=== PATIENT | male | born 1960 | race Two or more races ===

== ENCOUNTER 2018-04-15 15:57 | Emergency (ER) | payer SELFPAY ==
--- NOTE | 2018-04-15 16:40 | EDM.PDOC ---
ED HPI GENERAL MEDICAL PROBLEM - General Chief Complaint: Drug or Alcohol Abuse Stated Complaint: [facility] Time Seen by Provider: 04/15/18 16:10 Source of Information: Reports: EMS History Limitations: Reports: Altered Mental Status - History of Present Illness INITIAL COMMENTS - FREE TEXT/NARRATIVE: Per EMS, the patient was drinking at [employer]. He became intoxicated. The staff called a cab for him, but he became unresponsive. EMS was called. Here in the ED, the patient was pulling at his IV just prior to my entering his room, however, as soon as I entered, he closed his eyes and would not open them upon request. He did not answer any questions or follow any commands. There is no report of a fall or other trauma. There is no report of the patient using any recreational drugs in addition to alcohol, however, it cannot be ruled out at this time. - Related Data Allergies Allergy/AdvReac Type Severity Reaction Status Date / Time Penicillins Allergy Hives Verified 04/15/18 16:08 Home Meds: Home Meds . [No Known Home Meds] 10/13/14 [History] Past Medical History - Past Health History Medical/Surgical History: Denies Medical/Surgical History ED ROS GENERAL - Review of Systems Review Of Systems: Unable To Obtain - Physical Exam Exam: See Below Exam Limited By: Uncooperative General Appearance: WD/WN, No Apparent Distress, Lethargic Eye Exam: Bilateral Eye: Normal Inspection Ears: Normal External Exam, Hearing Grossly Normal Nose: Normal Inspection, No Blood Throat/Mouth: Normal Inspection, Normal Lips, No Airway Compromise Head Exam: Atraumatic, Normocephalic Neck: Normal Inspection Respiratory/Chest: No Respiratory Distress, Lungs Clear, Normal Breath Sounds, No Accessory Muscle Use Cardiovascular: Normal Peripheral Pulses, Regular Rate, Rhythm, No Edema, No Gallop, No JVD, No Murmur, No Rub GI/Abdominal: Normal Bowel Sounds, Soft, Non-Tender, No Organomegaly, No Distention, No Abnormal Bruit, No Mass (Male) Exam: Deferred Rectal (Males) Exam: Deferred Neuro Exam (Abbreviated): Unresponsive Back Exam: Normal Inspection, Full Range of Motion, NT Extremities: Normal Inspection, No Pedal Edema, Normal Capillary Refill Psychiatric: Other (Unable to assess) Skin Exam: Warm, Dry, Intact, Normal Color, No Rash EKG INTERPRETATION EKG Date: 04/15/18 Time: 16:38 Rhythm: NSR Rate (Beats/Min): 74 [place]: Normal P-Wave: Present QRS: Other (Early transition) ST-T: Elevated (Concave, anterolateral leads) QT: Normal Comparison: No Change (10/13/2014) Course - Vital Signs Last Recorded V/S: Last Vital Signs Temp 36.3 C 04/15/18 16:05 Pulse 99 04/15/18 16:05 Resp 12 04/15/18 16:05 BP 99/62 04/15/18 16:05 Pulse Ox 90 L 04/15/18 16:05 - Orders/Labs/Meds Orders: Active Orders 24 hr Category Date Time Status Accu Check [Blood Glucose Check, Bedside] [] ONETIME Care 04/15/18 16:31 Active EKG Documentation Completion [] STAT Care 04/15/18 16:30 Active DRUG SCREEN, URINE [URCHEM] Stat Lab 04/15/18 16:48 Ordered Sodium Chloride 0.9% [Normal Saline] 1,000 ml Med 04/15/18 16:45 Active IV ASDIRECTED Medication Orders Sodium Chloride (Normal Saline) 1,000 mls @ 150 mls/hr IV ASDIRECTED [facility] Last Admin: 04/15/18 16:38 Dose: 150 mls/hr Labs: Laboratory Tests 04/15/18 04/15/18 04/15/18 Range/Units 16:10 16:10 16:10 WBC 12.46 H (4.23-9.07) K/mm3 RBC 3.79 L (4.63-6.08) M/mm3 Hgb 13.0 L (13.7-17.5) gm/L Hct 37.5 L (40.1-51.0) % MCV 98.9 H (79.0-92.2) fl MCH 34.3 H (25.7-32.2) pg MCHC 34.7 (32.2-35.5) g/dl RDW Std Deviation 50.3 H (35.1-43.9) fL Plt Count 531 H (163-337) K/mm3 MPV 8.8 L (9.4-12.3) fl Neutrophils % (Manual) 43 (40-60) % Band Neutrophils % 0 (0-10) % Lymphocytes % (Manual) 53 H (20-40) % Atypical Lymphs % 0 % Monocytes % (Manual) 1 L (2-10) % Eosinophils % (Manual) 3 (0.8-7.0) % Basophils % (Manual) 0 L (0.2-1.2) Platelet Estimate Increased Plt Morphology Comment See note RBC Morph Comment Normal Sodium 136 (136-145) mEq/L Potassium 4.8 (3.5-5.1) mEq/L Chloride 103 (98-107) mEq/L Carbon Dioxide 23 (21-32) mEq/L Anion Gap 14.8 (5-15) BUN 10 (7-18) mg/dL Creatinine 0.8 (0.7-1.3) mg/dL Est Cr Clr Drug Dosing 100.40 mL/min Estimated GFR (MDRD) > 60 (>60) mL/min BUN/Creatinine Ratio 12.5 L (14-18) Glucose 95 (74-106) mg/dL POC Glucose (70-105) mg/dL Calcium 8.1 L (8.5-10.1) mg/dL Total Bilirubin 0.3 (0.2-1.0) mg/dL AST 37 (15-37) U/L ALT 19 (16-63) U/L Alkaline Phosphatase 60 (46-116) U/L Troponin I < 0.017 (0.00-0.056) ng/mL Total Protein 7.3 (6.4-8.2) g/dl Albumin 3.2 L (3.4-5.0) g/dl Globulin 4.1 gm/dL Albumin/Globulin Ratio 0.8 L (1-2) TSH 3rd Generation 4.339 H (0.358-3.74) uIU/mL Salicylates (2.8-20) mg/dL Urine Opiates Screen (NEGATIVE) Ur Buprenorphine Scrn (NEGATIVE) Ur Oxycodone Screen (NEGATIVE) Urine Methadone Screen (NEGATIVE) Ur Propoxyphene Screen (NEGATIVE) Acetaminophen 0 L (10-30) ug/mL Ur Barbiturates Screen (NEGATIVE) Ur Tricyclics Screen (NEGATIVE) Ur Phencyclidine Scrn (NEGATIVE) Ur Amphetamine Screen (NEGATIVE) U Methamphetamines Scrn (NEGATIVE) U Benzodiazepines Scrn (NEGATIVE) U Cocaine Metab Screen (NEGATIVE) U Marijuana (THC) Screen (NEGATIVE) Ethyl Alcohol 0.33 (0.00) gm% 04/15/18 04/15/18 04/15/18 Range/Units 16:10 16:42 16:48 WBC (4.23-9.07) K/mm3 RBC (4.63-6.08) M/mm3 Hgb (13.7-17.5) gm/L Hct (40.1-51.0) % MCV (79.0-92.2) fl MCH (25.7-32.2) pg MCHC (32.2-35.5) g/dl RDW Std Deviation (35.1-43.9) fL Plt Count (163-337) K/mm3 MPV (9.4-12.3) fl Neutrophils % (Manual) (40-60) % Band Neutrophils % (0-10) % Lymphocytes % (Manual) (20-40) % Atypical Lymphs % % Monocytes % (Manual) (2-10) % Eosinophils % (Manual) (0.8-7.0) % Basophils % (Manual) (0.2-1.2) Platelet Estimate Plt Morphology Comment RBC Morph Comment Sodium (136-145) mEq/L Potassium (3.5-5.1) mEq/L Chloride (98-107) mEq/L Carbon Dioxide (21-32) mEq/L Anion Gap (5-15) BUN (7-18) mg/dL Creatinine (0.7-1.3) mg/dL Est Cr Clr Drug Dosing mL/min Estimated GFR (MDRD) (>60) mL/min BUN/Creatinine Ratio (14-18) Glucose (74-106) mg/dL POC Glucose 84 (70-105) mg/dL Calcium (8.5-10.1) mg/dL Total Bilirubin (0.2-1.0) mg/dL AST (15-37) U/L ALT (16-63) U/L Alkaline Phosphatase (46-116) U/L Troponin I (0.00-0.056) ng/mL Total Protein (6.4-8.2) g/dl Albumin (3.4-5.0) g/dl Globulin gm/dL Albumin/Globulin Ratio (1-2) TSH 3rd Generation (0.358-3.74) uIU/mL Salicylates 3.2 (2.8-20) mg/dL Urine Opiates Screen Negative (NEGATIVE) Ur Buprenorphine Scrn Negative (NEGATIVE) Ur Oxycodone Screen Negative (NEGATIVE) Urine Methadone Screen Negative (NEGATIVE) Ur Propoxyphene Screen Negative (NEGATIVE) Acetaminophen (10-30) ug/mL Ur Barbiturates Screen Negative (NEGATIVE) Ur Tricyclics Screen Negative (NEGATIVE) Ur Phencyclidine Scrn Negative (NEGATIVE) Ur Amphetamine Screen Negative (NEGATIVE) U Methamphetamines Scrn Negative (NEGATIVE) U Benzodiazepines Scrn Negative (NEGATIVE) U Cocaine Metab Screen Negative (NEGATIVE) U Marijuana (THC) Screen Negative (NEGATIVE) Ethyl Alcohol (0.00) gm% Meds: Medications Generic Name Dose Route Start Last Admin Trade Name Freq PRN Reason Stop Dose Admin Sodium Chloride 1,000 mls @ 150 mls/hr 04/15/18 16:45 04/15/18 16:38 Normal Saline IV 150 mls/hr ASDIRECTED [facility] Administration - Re-Assessments/Exams Free Text/Narrative Re-Assessment/Exam: 04/15/18 16:37 After I left the patient's room, Froilan ARELLANO approached the patient to get a urine sample. He was instructed to acquire the urine by quick catheter if the patient would not provide one willingly. At that point, the patient woke up. 04/15/18 18:08 Test results reviewed with the patient. The patient's WBC count is elevated at 12.46, but with 0% bandemia. His hemoglobin/hematocrit and platelets are mildly elevated, as well. His TSH is elevated at 4.339, suggestive of hypothyroidism. His alcohol level is significantly elevated at 0.33. The patient is adamant that he wants the IV removed, and that he be allowed to go home. We requested that he get a ride home. He states that he has no one to call for a ride, and that he will simply walk. We requested that he stay for dinner first, before being discharged home. He stated that he does not want to eat our food. He is insistent that we remove the IV and let him go home. As there is no law against public intoxication, I have no choice but to discharge the patient. Departure - Departure Time of Disposition: 18:12 Disposition: Home, Self-Care 01 Condition: Fair Clinical Impression: Alcohol intoxication, Elevated TSH - Discharge Information Referrals: Renee Rose [Physician] - Additional Instructions: You were seen in the emergency room after becoming unresponsive at a bar. Workup in the ER included blood work, a urine drug screen, and an ECG. Your workup found that your TSH (thyroid-stimulating hormone) is elevated, suggesting that you may be HYPOTHYROID. We recommend that you follow-up with Dr. Rose for further evaluation. Your alcohol level was found to be substantially elevated at 0.33. For reference , this is over 4 times the legal limit for driving. We STRONGLY recommend that you seek professional help to stop drinking alcohol at [facility]: [address] [facility] [place] [phone] If any other problems, please do not hesitate to return to the ER. - My Orders Last 24 Hours: My Active Orders 04/15/18 16:30 EKG Documentation Completion [RC] STAT 04/15/18 16:31 Accu Check [Blood Glucose Check, Bedside] [RC] ONETIME 04/15/18 16:45 Sodium Chloride 0.9% [Normal Saline] 1,000 ml IV ASDIRECTED 04/15/18 16:48 DRUG SCREEN, URINE [URCHEM] Stat - Assessment/Plan Last 24 Hours: My Active Orders 04/15/18 16:30 EKG Documentation Completion [RC] STAT 04/15/18 16:31 Accu Check [Blood Glucose Check, Bedside] [RC] ONETIME 04/15/18 16:45 Sodium Chloride 0.9% [Normal Saline] 1,000 ml IV ASDIRECTED 04/15/18 16:48 DRUG SCREEN, URINE [URCHEM] Stat
[2018-04-15] MEDS ORDERED: Sodium Chloride 0.9% 1,000 ML IV SCH (16:45)
== END 2018-04-15 18:17 | disposition home or self-care (01) ==
LOC: JD.ED 15:57
DX: F10.129 Alcohol abuse with intoxication, unspecified (principal); Y90.0 Blood alcohol level of less than 20 mg/100 ml; R79.89 Other specified abnormal findings of blood chemistry; Z88.0 Allergy status to penicillin
CPT/HCPCS: 36415; 80053; 80306; 82962; 84443; 84484; 85007; 85027; 93005; 96360; 96361; 99285; G0480; J7040; 99283